=== PATIENT | female | born 1960 | race Caucasian/White ===

== ENCOUNTER 2016-11-14 07:03 | Day surgery (SDC) | payer BC ==
[2016-11-14] MEDS ORDERED: Midazolam 2 MG/2 ML VIAL ONE (07:52)
[2016-11-14] MEDS ORDERED: Lidocaine 2% MPF (5 ml) Inj ONE (07:53)
[2016-11-14] MEDS ORDERED: Propofol 10 mg/ml Inj (20 ML) ONE (07:53)
[2016-11-14 08:05] VITALS: RESP 13; TEMP 97
[2016-11-14] MEDS ORDERED: Lactated Ringer's 500 ML IV ONE (08:24)
[2016-11-14 09:45] VITALS: BP 112/50; PULSE 75; O2SAT 99
== END 2016-11-14 09:56 | disposition home or self-care (01) ==
LOC: H.ENDO 07:03
PROVIDERS: ATTEND Internal Medicine Gastroenterology
DX: R19.7 Diarrhea, unspecified (principal); E78.5 Hyperlipidemia, unspecified; I10 Essential (primary) hypertension; K57.30 Diverticulosis of large intestine without perforation or abscess without bleeding; K52.9 Noninfective gastroenteritis and colitis, unspecified; K64.8 Other hemorrhoids; R10.84 Generalized abdominal pain; K31.9 Disease of stomach and duodenum, unspecified; K29.70 Gastritis, unspecified, without bleeding; K31.89 Other diseases of stomach and duodenum
CPT/HCPCS: 43239; 45378; 88305; J2250; J2704; J7120

== ENCOUNTER 2017-06-28 13:30 | Emergency (ER) | payer BC ==
[2017-06-28 13:47] VITALS: BP 146/56; PULSE 100; RESP 16; TEMP 99; O2SAT 99
--- NOTE | 2017-06-28 14:15 | RAD ---
PROCEDURE: Right Ankle Radiographs. HISTORY: trauma COMPARISON: None FINDINGS: BONES: Normal. No fracture. JOINTS: Normal. No osteoarthritis. Ankle mortise maintained. Talar dome intact SOFT TISSUES: Normal. OTHER FINDINGS: None. IMPRESSION: Normal right ankle radiographs.
--- NOTE | 2017-06-28 14:17 | RAD ---
PROCEDURE: Right Foot Radiographs. HISTORY: trauma COMPARISON: None. FINDINGS: BONES: Normal. No fracture. JOINTS: Normal. SOFT TISSUES: Normal. OTHER FINDINGS: None. IMPRESSION: Normal right foot radiographs.
--- NOTE | 2017-06-28 14:30 | ED PDOC ---
Lower Extremity Pain/Injury Time Seen by Provider: 06/28/17 13:42 Chief Complaint (Nursing): Lower Extremity Problem/Injury Chief Complaint (Provider): Lower extremity problem/injury History Per: Patient History/Exam Limitations: no limitations Onset/Duration Of Symptoms: Hrs Current Symptoms Are (Timing): Still Present Additional Complaint(s): 57 year old female presented to ED with injury to the right ankle and foot after she tripped and fell today. Patient indicates no numbness, tingling, or other injury. PCP: Zhang Bailey - Ankle/Foot Description Of Injury: Fell Past Medical History Reviewed: Historical Data, Nursing Documentation, Vital Signs Vital Signs: Last Vital Signs Temp 99.0 F 06/28/17 13:45 Pulse 100 H 06/28/17 13:45 Resp 16 06/28/17 13:45 BP 146/56 L 06/28/17 13:45 Pulse Ox 99 06/28/17 13:45 - Medical History PMH: HTN, Hypercholesterolemia Denies: Arthritis, Asthma, Atrial Fibrillation, CHF, COPD, Diabetes, Seizures - Surgical History Surgical History: Tonsillectomy Denies: CABG, Pacemaker - Family History Family History: States: CAD - Social History Current smoker - smoking cessation education provided: No Alcohol: None Drugs: Denies - Home Medications Home Medications: Ambulatory Orders Medication Instructions Recorded Atenolol/Chlorthalidone 1 tab PO DAILY 11/14/16 [Atenolol-Chlorthalidone 50-25] Rosuvastatin Calcium [Crestor] 1 tab PO DAILY 11/14/16 - Allergies Allergies/Adverse Reactions: Allergies Allergy/AdvReac Type Severity Reaction Status Date / Time No Known Allergies Allergy Verified 11/14/16 08:22 Review of Systems ROS Statement: Except As Marked, All Systems Reviewed And Found Negative Musculoskeletal: Positive for: Foot Pain (right ankle/foot injury) Neurological: Negative for: Weakness (right ankle/foot), Other (tingling to right foot/ankle) Physical Exam - Reviewed Nursing Documentation Reviewed: Yes Vital Signs Reviewed: Yes - Physical Exam Appears: Positive for: Well, Non-toxic, No Acute Distress Head Exam: Positive for: ATRAUMATIC, NORMAL INSPECTION, NORMOCEPHALIC Skin: Positive for: Normal Color, Warm. Negative for: Rash Eye Exam: Positive for: Normal appearance Cardiovascular/Chest: Negative for: Murmur Respiratory: Negative for: Respiratory Distress Pulses-Dorsalis Pedis (R): 2+ Extremity: Positive for: Normal ROM (upper/lower), Capillary Refill (less than 2 seconds), Other (mild tenderness and swelling on lateral surface area of right foot just inferior to lateral malleolus). Negative for: Tenderness (to malleolus), Swelling (to malleolus) Neurologic/Psych: Positive for: Alert, Oriented. Negative for: Aphasia, Facial Droop - ECG O2 Sat by Pulse Oximetry: 99 (RA) Pulse Ox Interpretation: Normal - Radiology X-Ray: Interpreted by Me (R ankle and foot x-ray) X-Ray Interpretation: No Acute Disease Medical Decision Making Medical Decision Making: Initial Impression: Right foot injury Initial Plan: Ibuprofen 600mg PO X-ray ankle X-ray foot R ankle immobilized in ankle aircast splint applied by auto body technician. Crutches provided. Scribe Attestation: Documented by Romario Thorne acting as a scribe for Lazaro Gregg. Provider Scribe Attestation: All medical record entries made by the Scribe were at my direction and personally dictated by me. I have reviewed the chart and agree that the record accurately reflects my personal performance of the history, physical exam, medical decision making, and the department course for this patient. I have also personally directed, reviewed, and agree with the discharge instructions and disposition. Disposition - Clinical Impression Clinical Impression: Ankle injury - Patient ED Disposition Is Patient to be Admitted: No - Disposition Disposition: Routine/Home Disposition Time: 14:45 Condition: STABLE Additional Instructions: Follow up with podiatry clinic for further evaluation Return to ED immediately if symptoms worsen Instructions: Ankle Sprain (DC), How to Use Crutches, Going Up and Down Curbs or Stairs With a Walker or Crutches Forms: [employer] ([place]), [facility] ED School/Work Excuse Print Language: TAMAZIGHT
== END 2017-06-28 15:49 | disposition home or self-care (01) ==
LOC: H.ER 13:30
DX: S99.911A Unspecified injury of right ankle, initial encounter (principal); W19.XXXA Unspecified fall, initial encounter; Y92.89 Other specified places as the place of occurrence of the external cause; E78.00 Pure hypercholesterolemia, unspecified; I10 Essential (primary) hypertension; Z82.49 Family history of ischemic heart disease and other diseases of the circulatory system